=== PATIENT | male | born 1980 | race Two or more races ===

== ENCOUNTER 2020-08-04 11:28 | Outpatient (CLI) | payer OTHER | END 2020-08-04 17:44 | disposition home or self-care (01) | LOC: OFIC 805 11:28 | PROVIDERS: ATTEND Otolaryngology Otology & Neurotology | DX: H92.03 Otalgia, bilateral (principal); J00 Acute nasopharyngitis [common cold]; H69.93 Unspecified Eustachian tube disorder, bilateral ==

== ENCOUNTER 2020-09-01 11:20 | Outpatient (CLI) | payer OTHER | END 2020-09-01 12:00 | disposition home or self-care (01) | LOC: OFIC 805 11:20 | PROVIDERS: ATTEND Otolaryngology Otology & Neurotology | DX: H69.83 Other specified disorders of Eustachian tube, bilateral (principal); H92.03 Otalgia, bilateral; J00 Acute nasopharyngitis [common cold] ==